=== PATIENT | male | born 1940 | race Caucasian/White ===

== ENCOUNTER 2023-03-31 22:19 | Inpatient (IN) | payer MEDICARE ==
[~2023-03-31] VITALS: Ht 180.3 cm; Wt 65.8 kg
[2023-04-01] VITALS (11 sets, daily range): BP systolic 116–168; BP diastolic 66–78; PULSE 64–102; RESP 18–21; TEMP 97.9–99.3; O2SAT 94–100
[2023-04-01] MEDS ORDERED: ATORVASTATIN CA40 MG PO (06:57)
[2023-04-01] MEDS ORDERED: ASPIRIN81 MG PO (06:57)
[2023-04-01] MEDS ORDERED: HYDRALAZINE HCL10 MG PO (06:57)
[2023-04-01] MEDS ORDERED: ONDANSETRON HCL4 MG PO (06:57)
[2023-04-01] MEDS ORDERED: [UNRECOGNIZED DRUG - OTHER] (06:57)
[2023-04-01] MEDS ORDERED: Morphine 4mg INJECTION 4 MG/ML INJ IV ONE (07:00)
[2023-04-01] MEDS ORDERED: HYDRALAZINE HCL 20 MG/ML VIAL IV PRN (07:00)
[2023-04-01] MEDS ORDERED: ONDANSETRON HCL INJ 2MG/ML 2ML 2 MG/ML VIAL IV PRN (07:00)
[2023-04-01] MEDS ORDERED: MAGNESIUM HYDROXIDE 30 ML UDC PO PRN (07:00)
[2023-04-01] MEDS ORDERED: Morphine 4mg INJECTION 4 MG/ML INJ IV PRN (07:00)
[2023-04-01] MEDS ORDERED: ALBUTEROL/IPRATROPIUM 3 ML NEB NEB PRN (07:00)
[2023-04-01] MEDS ORDERED: TAMSULOSIN HCL 0.4 MG CAP PO ONE ×2 (07:30→13:30)
[2023-04-01] MEDS: SODIUM CHLORIDE 0.9% 1000ML 1,000 ML IV SCH ×3 (07:30→16:17)
[2023-04-01 08:07] LABS: BASOPHILS % 0.6 % (0.0-1.0); EOSINOPHILS # (AUTO) 0.4 (0.0-0.4); EOSINOPHILS % 6.2 % (0.0-6.0); HEMATOCRIT 26.2 % (38.2-49.6); HEMOGLOBIN 8.8 g/dL (14.0-18.0); LYMPHOCYTES # (AUTO) 1.1 (1.0-3.2); LYMPHOCYTES % 15.2 % (18.0-39.1); MEAN CORPUSCULAR HEMOGLOBIN 29.8 pg (28-32); MEAN CORPUSCULAR HGB CONC 33.6 g/dL (31-35); MEAN CORPUSCULAR VOLUME 88.8 fL (81-99); MONOCYTES # (AUTO) 0.5 (0.2-0.8); MONOCYTES % 6.5 % (4.4-11.3); NEUTROPHILS # (AUTO) 4.9 (2.1-6.9); NEUTROPHILS % 71.2 % (38.7-80.0); PLATELET COUNT 156 x10e3/uL (140-360); RED BLOOD COUNT 2.95 x10e6/uL (4.3-5.7); RED CELL DISTRIBUTION WIDTH 16.9 % (11.7-14.4); WHITE BLOOD COUNT 6.91 x10e3/uL (4.8-10.8)
[2023-04-01 08:31] LABS: ANION GAP 11.4 mmol/L (8-16); CALCIUM 10.7 mg/dL (8.4-10.2); CREATININE, SERUM 2.77 mg/dL (0.72-1.25); POTASSIUM 4.4 mmol/L (3.5-5.1)
[2023-04-01] MEDS: SENNA-S TABLET PO SCH ×2 (09:00→16:11)
[2023-04-01] MEDS ORDERED: IOPAMIDOL 370 MG/ML 100 ML INFUS..BTL INJ ONE (14:10)
[2023-04-01] MEDS ORDERED: SODIUM CHLORIDE 0.9% 250ML 250 ML ONE (14:10)
[2023-04-01] MEDS ORDERED: FENTANYL CITRATE/PF 100MCG/2 ML INJ ONE (14:52)
[2023-04-01] MEDS: TAMSULOSIN HCL 0.4 MG CAP PO SCH (21:53)
[2023-04-02] VITALS (10 sets, daily range): BP systolic 93–116; BP diastolic 55–67; PULSE 65–92; RESP 18; TEMP 97.9–99.1; O2SAT 93–100
[2023-04-02] MEDS: SODIUM CHLORIDE 0.9% 1000ML 1,000 ML IV SCH ×3 (02:48→20:54)
[2023-04-02 05:50] LABS: BASOPHILS % 0.5 % (0.0-1.0); EOSINOPHILS # (AUTO) 0.2 (0.0-0.4); EOSINOPHILS % 2.1 % (0.0-6.0); HEMATOCRIT 23.4 % (38.2-49.6); HEMOGLOBIN 7.6 g/dL (14.0-18.0); LYMPHOCYTES # (AUTO) 1.1 (1.0-3.2); LYMPHOCYTES % 14.2 % (18.0-39.1); MEAN CORPUSCULAR HEMOGLOBIN 29.8 pg (28-32); MEAN CORPUSCULAR HGB CONC 32.5 g/dL (31-35); MEAN CORPUSCULAR VOLUME 91.8 fL (81-99); MONOCYTES # (AUTO) 0.6 (0.2-0.8); MONOCYTES % 8.1 % (4.4-11.3); NEUTROPHILS # (AUTO) 5.8 (2.1-6.9); NEUTROPHILS % 74.8 % (38.7-80.0); PLATELET COUNT 152 x10e3/uL (140-360); RED BLOOD COUNT 2.55 x10e6/uL (4.3-5.7); RED CELL DISTRIBUTION WIDTH 16.8 % (11.7-14.4); WHITE BLOOD COUNT 7.77 x10e3/uL (4.8-10.8)
[2023-04-02 06:40] LABS: ANION GAP 10.6 mmol/L (8-16); CALCIUM 8.5 mg/dL (8.4-10.2); CREATININE, SERUM 2.97 mg/dL (0.72-1.25); POTASSIUM 4.6 mmol/L (3.5-5.1)
[2023-04-02] MEDS: SENNA-S TABLET PO SCH ×2 (10:01→16:11)
[2023-04-02] MEDS: HYDROCODONE/APAP 10MG-325MG TAB PO PRN (10:06)
[2023-04-02] MEDS ORDERED: SODIUM CHLORIDE 0.9% 250ML 250 ML IV ONE (10:15)
[2023-04-02 11:25] LABS: THYROID STIMULATING HORMONE 0.713 uIU/mL (0.350-4.940)
[2023-04-02] MEDS ORDERED: ONDANSETRON HCL 4 MG ORAL DISINTEGRATING TAB PO PRN (11:30)
[2023-04-02] MEDS: TAMSULOSIN HCL 0.4 MG CAP PO SCH (20:49)
[2023-04-03] VITALS (11 sets, daily range): BP systolic 112–144; BP diastolic 55–100; PULSE 58–87; RESP 17–20; TEMP 97.3–98.9; O2SAT 93–100
[2023-04-03] MEDS: SODIUM CHLORIDE 0.9% 1000ML 1,000 ML IV SCH ×2 (04:34→16:22)
[2023-04-03 06:07] LABS: BASOPHILS % 0.5 % (0.0-1.0); EOSINOPHILS # (AUTO) 0.4 (0.0-0.4); EOSINOPHILS % 6.6 % (0.0-6.0); HEMATOCRIT 24.9 % (38.2-49.6); HEMOGLOBIN 8.4 g/dL (14.0-18.0); LYMPHOCYTES # (AUTO) 1.3 (1.0-3.2); LYMPHOCYTES % 20.6 % (18.0-39.1); MEAN CORPUSCULAR HEMOGLOBIN 30.5 pg (28-32); MEAN CORPUSCULAR HGB CONC 33.7 g/dL (31-35); MEAN CORPUSCULAR VOLUME 90.5 fL (81-99); MONOCYTES # (AUTO) 0.4 (0.2-0.8); MONOCYTES % 6.7 % (4.4-11.3); NEUTROPHILS % 65.4 % (38.7-80.0); PLATELET COUNT 125 x10e3/uL (140-360); RED BLOOD COUNT 2.75 x10e6/uL (4.3-5.7); WHITE BLOOD COUNT 6.08 x10e3/uL (4.8-10.8)
[2023-04-03 06:37] LABS: ANION GAP 11.5 mmol/L (8-16); CALCIUM 8.5 mg/dL (8.4-10.2); CREATININE, SERUM 2.73 mg/dL (0.72-1.25); POTASSIUM 4.5 mmol/L (3.5-5.1)
[2023-04-03 07:07] LABS: CLARITY,URINE CLOUDY (CLEAR); COLOR,URINE YELLOW (YELLOW); LEUKOCYTE ESTERASE ,URINE SMALL (NEGATIVE); NITRITE,URINE NEGATIVE (NEGATIVE)
[2023-04-03 07:08] LABS: KETONES,URINE NEGATIVE (NEGATIVE); PROTEIN,URINE DIPSTICK 2+ (NEGATIVE); URINE UROBILINOGEN 0.2 mg/dL (0.2 - 1)
[2023-04-03 07:12] LABS: BACTERIA,URINE FEW /HPF; EPITHELIAL CELLS,URINE FEW /LPF; RBC,URINE >50 /HPF (0-5); WBC,URINE (MAN) >50 /HPF (0-5)
[2023-04-03] MEDS: SENNA-S TABLET PO SCH ×2 (08:26→16:26)
[2023-04-03] MEDS: HYDROCODONE/APAP 10MG-325MG TAB PO PRN (08:33)
[2023-04-03] MEDS: TAMSULOSIN HCL 0.4 MG CAP PO SCH (20:00)
[2023-04-04] VITALS (8 sets, daily range): BP systolic 134–145; BP diastolic 67–75; PULSE 61–69; RESP 12–18; TEMP 97.5–98.1; O2SAT 96–100
[2023-04-04] MEDS: HYDROCODONE/APAP 10MG-325MG TAB PO PRN ×2 (00:14→08:56)
[2023-04-04] MEDS: SODIUM CHLORIDE 0.9% 1000ML 1,000 ML IV SCH ×3 (05:30→20:15)
[2023-04-04] MEDS: SENNA-S TABLET PO SCH ×2 (08:53→15:58)
[2023-04-04] MEDS: TAMSULOSIN HCL 0.4 MG CAP PO SCH (20:15)
[2023-04-04] MEDS: ATORVASTATIN 40 MG TAB PO SCH (20:15)
[2023-04-05] VITALS (11 sets, daily range): BP systolic 132–165; BP diastolic 65–77; PULSE 61–78; RESP 16–21; TEMP 97.4–98.7; O2SAT 95–100
[2023-04-05 06:39] LABS: BASOPHILS % 0.6 % (0.0-1.0); EOSINOPHILS # (AUTO) 0.4 (0.0-0.4); EOSINOPHILS % 8.7 % (0.0-6.0); HEMATOCRIT 28.2 % (38.2-49.6); HEMOGLOBIN 9.5 g/dL (14.0-18.0); LYMPHOCYTES % 20.3 % (18.0-39.1); MEAN CORPUSCULAR HEMOGLOBIN 30.1 pg (28-32); MEAN CORPUSCULAR HGB CONC 33.7 g/dL (31-35); MEAN CORPUSCULAR VOLUME 89.2 fL (81-99); MONOCYTES # (AUTO) 0.3 (0.2-0.8); MONOCYTES % 6.7 % (4.4-11.3); NEUTROPHILS # (AUTO) 3.2 (2.1-6.9); NEUTROPHILS % 63.5 % (38.7-80.0); PLATELET COUNT 152 x10e3/uL (140-360); RED BLOOD COUNT 3.16 x10e6/uL (4.3-5.7); RED CELL DISTRIBUTION WIDTH 15.8 % (11.7-14.4); WHITE BLOOD COUNT 5.07 x10e3/uL (4.8-10.8)
[2023-04-05 07:09] LABS: ANION GAP 11.4 mmol/L (8-16); CALCIUM 8.9 mg/dL (8.4-10.2); CREATININE, SERUM 2.3 mg/dL (0.72-1.25); POTASSIUM 4.4 mmol/L (3.5-5.1)
[2023-04-05] MEDS: SENNA-S TABLET PO SCH ×2 (08:26→15:25)
[2023-04-05] MEDS: SODIUM CHLORIDE 0.9% 1000ML 1,000 ML IV SCH ×2 (11:37→20:23)
[2023-04-05] MEDS: HYDROCODONE/APAP 10MG-325MG TAB PO PRN (13:32)
[2023-04-05] MEDS: ATORVASTATIN 40 MG TAB PO SCH (20:23)
[2023-04-05] MEDS: TAMSULOSIN HCL 0.4 MG CAP PO SCH (20:24)
[2023-04-06] VITALS (7 sets, daily range): BP systolic 128–156; BP diastolic 77–90; PULSE 67–76; RESP 18–20; TEMP 97.5–98.6; O2SAT 96–100
[2023-04-06] MEDS: SODIUM CHLORIDE 0.9% 1000ML 1,000 ML IV SCH ×2 (07:30→17:30)
[2023-04-06] MEDS: SENNA-S TABLET PO SCH ×2 (08:33→16:42)
[2023-04-06] MEDS: SACUBITRIL/VALSARTAN 24MG/26MG 1 EA TAB PO SCH (16:42)
[2023-04-06] MEDS: CARVEDILOL 3.125 MG TAB PO SCH (16:43)
[2023-04-06] MEDS: ATORVASTATIN 40 MG TAB PO SCH (21:21)
[2023-04-06] MEDS: TAMSULOSIN HCL 0.4 MG CAP PO SCH (21:21)
[2023-04-07] VITALS (9 sets, daily range): BP systolic 106–127; BP diastolic 59–82; PULSE 66–94; RESP 18–21; TEMP 97.8–99; O2SAT 97–100
[2023-04-07] MEDS: SODIUM CHLORIDE 0.9% 1000ML 1,000 ML IV SCH ×3 (03:30→20:32)
[2023-04-07] MEDS: SENNA-S TABLET PO SCH ×2 (09:00→17:00)
[2023-04-07] MEDS: SACUBITRIL/VALSARTAN 24MG/26MG 1 EA TAB PO SCH ×2 (09:10→17:05)
[2023-04-07] MEDS: CARVEDILOL 3.125 MG TAB PO SCH ×2 (09:10→17:05)
[2023-04-07] MEDS: ATORVASTATIN 40 MG TAB PO SCH (22:07)
[2023-04-07] MEDS: TAMSULOSIN HCL 0.4 MG CAP PO SCH (22:07)
[2023-04-08] VITALS (11 sets, daily range): BP systolic 111–150; BP diastolic 66–84; PULSE 63–74; RESP 18–21; TEMP 97–98.6; O2SAT 94–100
[2023-04-08 05:44] LABS: BASOPHILS # (AUTO) 0.1 (0.0-0.1); BASOPHILS % 0.8 % (0.0-1.0); EOSINOPHILS # (AUTO) 0.4 (0.0-0.4); EOSINOPHILS % 6.6 % (0.0-6.0); HEMATOCRIT 28.1 % (38.2-49.6); HEMOGLOBIN 9.6 g/dL (14.0-18.0); LYMPHOCYTES # (AUTO) 1.5 (1.0-3.2); LYMPHOCYTES % 22.4 % (18.0-39.1); MEAN CORPUSCULAR HEMOGLOBIN 30.4 pg (28-32); MEAN CORPUSCULAR HGB CONC 34.2 g/dL (31-35); MEAN CORPUSCULAR VOLUME 88.9 fL (81-99); MONOCYTES # (AUTO) 0.5 (0.2-0.8); MONOCYTES % 7.2 % (4.4-11.3); NEUTROPHILS # (AUTO) 4.1 (2.1-6.9); NEUTROPHILS % 62.7 % (38.7-80.0); PLATELET COUNT 146 x10e3/uL (140-360); RED BLOOD COUNT 3.16 x10e6/uL (4.3-5.7); RED CELL DISTRIBUTION WIDTH 15.9 % (11.7-14.4); WHITE BLOOD COUNT 6.53 x10e3/uL (4.8-10.8)
[2023-04-08 06:06] LABS: ANION GAP 13.2 mmol/L (8-16); CALCIUM 8.8 mg/dL (8.4-10.2); CREATININE, SERUM 2.31 mg/dL (0.72-1.25); POTASSIUM 4.2 mmol/L (3.5-5.1)
[2023-04-08] MEDS: SACUBITRIL/VALSARTAN 24MG/26MG 1 EA TAB PO SCH ×2 (09:00→17:21)
[2023-04-08] MEDS: CARVEDILOL 3.125 MG TAB PO SCH ×2 (09:00→17:21)
[2023-04-08] MEDS: SENNA-S TABLET PO SCH ×2 (09:00→17:00)
[2023-04-08] MEDS: SODIUM CHLORIDE 0.9% 1000ML 1,000 ML IV SCH ×2 (09:55→17:24)
[2023-04-08] MEDS ORDERED: Morphine 10mg syringe 10 MG/ML INJ ONE (13:09)
[2023-04-08] MEDS ORDERED: IOPAMIDOL 610MG/1ML 300 MG/ML VIAL IV ONE (13:47)
[2023-04-08] MEDS ORDERED: ACETAMINOPHEN 325 MG TAB PO PRN (20:30)
[2023-04-08] MEDS: ATORVASTATIN 40 MG TAB PO SCH (20:37)
[2023-04-08] MEDS: TAMSULOSIN HCL 0.4 MG CAP PO SCH (20:37)
[2023-04-09] MEDS: SODIUM CHLORIDE 0.9% 1000ML 1,000 ML IV SCH (03:25)
[2023-04-09 04:00] VITALS: BP 125/68; PULSE 63; RESP 18; TEMP 97.6; O2SAT 99
[2023-04-09 05:16] LABS: BASOPHILS % 0.1 % (0.0-1.0); EOSINOPHILS % 0.4 % (0.0-6.0); HEMATOCRIT 27.2 % (38.2-49.6); LYMPHOCYTES % 13.6 % (18.0-39.1); MEAN CORPUSCULAR HEMOGLOBIN 29.8 pg (28-32); MEAN CORPUSCULAR HGB CONC 33.1 g/dL (31-35); MEAN CORPUSCULAR VOLUME 90.1 fL (81-99); MONOCYTES # (AUTO) 0.5 (0.2-0.8); MONOCYTES % 5.9 % (4.4-11.3); NEUTROPHILS # (AUTO) 6.1 (2.1-6.9); NEUTROPHILS % 79.6 % (38.7-80.0); PLATELET COUNT 176 x10e3/uL (140-360); RED BLOOD COUNT 3.02 x10e6/uL (4.3-5.7); RED CELL DISTRIBUTION WIDTH 15.8 % (11.7-14.4); WHITE BLOOD COUNT 7.67 x10e3/uL (4.8-10.8)
[2023-04-09 05:38] LABS: ANION GAP 12.6 mmol/L (8-16); CALCIUM 8.4 mg/dL (8.4-10.2); CREATININE, SERUM 2.29 mg/dL (0.72-1.25); POTASSIUM 4.6 mmol/L (3.5-5.1)
[2023-04-09 07:07] VITALS: PULSE 74; RESP 20; O2SAT 96
[2023-04-09 07:38] VITALS: BP 117/67; PULSE 63; RESP 18; TEMP 98.5; O2SAT 100
[2023-04-09 08:00] VITALS: BP 117/67; PULSE 63; RESP 18; TEMP 98.5; O2SAT 100
[2023-04-09] MEDS: SACUBITRIL/VALSARTAN 24MG/26MG 1 EA TAB PO SCH (08:18)
[2023-04-09] MEDS: CARVEDILOL 3.125 MG TAB PO SCH (08:20)
[2023-04-09] MEDS: SENNA-S TABLET PO SCH (08:21)
[2023-04-09 11:06] VITALS: BP 108/79; PULSE 63; RESP 19; TEMP 98.9; O2SAT 100
[2023-04-09] MEDS ORDERED: IOPAMIDOL 370 MG/ML 100 ML INFUS..BTL INJ ONE (12:17)
[2023-04-09] MEDS ORDERED: LIDOCAINE HCL 1% LOCAL INJ 20 ML VIAL ONE (12:17)
[2023-04-09 16:05] VITALS: BP 112/62; PULSE 64; RESP 17; O2SAT 98
== END 2023-04-09 16:07 | disposition home or self-care (01) | DRG 699 ==
LOC: MED/SURG 04-01 00:04
PROVIDERS: ADMIT Internal Medicine; ATTEND Internal Medicine
PROC: 0T9030Z Drainage of Right Kidney with Drainage Device, Percutaneous Approach (ICD-10-PCS; principal; 2023-04-07)
PROC: 30243N1 Transfusion of Nonautologous Red Blood Cells into Central Vein, Percutaneous Approach (ICD-10-PCS; 2023-04-07)
DX: N99.522 Malfunction of incontinent external stoma of urinary tract (principal); N17.9 Acute kidney failure, unspecified; T83.092A Other mechanical complication of nephrostomy catheter, initial encounter; Y73.8 Miscellaneous gastroenterology and urology devices associated with adverse incidents, not elsewhere classified; N13.5 Crossing vessel and stricture of ureter without hydronephrosis; R63.4 Abnormal weight loss; F17.200 Nicotine dependence, unspecified, uncomplicated; Y92.89 Other specified places as the place of occurrence of the external cause; G89.18 Other acute postprocedural pain; N40.0 Benign prostatic hyperplasia without lower urinary tract symptoms; I25.10 Atherosclerotic heart disease of native coronary artery without angina pectoris; E78.5 Hyperlipidemia, unspecified; I73.9 Peripheral vascular disease, unspecified; Z85.46 Personal history of malignant neoplasm of prostate; Z95.5 Presence of coronary angioplasty implant and graft; Z68.20 Body mass index [BMI] 20.0-20.9, adult
CPT/HCPCS: 36415; 50433; 74018; 74420; 74425; 74470; 80048; 81001; 82607; 83540; 84443; 84466; 85025; 86850; 86900; 86920; 87086; 88300; 93306; 94799; 96361; 99252; C1758; C1769; C2617; J0696; J2001; J2270; J2405; J7030; J7050; P9016; Q9967